=== PATIENT | male | born 1950 | race Caucasian/White ===

== ENCOUNTER 2019-12-20 08:29 | Inpatient (IN) | payer MEDICARE, BC ==
[~2019-12-20] VITALS: Ht 180.3 cm; Wt 74.8 kg
[2019-12-20] MEDS ORDERED: LIPITOR20 MG PO (10:16)
[2019-12-20] MEDS ORDERED: DONEPEZIL HCL10 MG PO (10:16)
[2019-12-20] MEDS ORDERED: CELEXA10 MG PO (10:16)
[2019-12-20] MEDS ORDERED: CIMETIDINE200 MG PO (10:17)
[2019-12-20] MEDS ORDERED: KLONOPIN1 MG PO (10:17)
[2019-12-20] MEDS ORDERED: METAMUCIL CAPSULE PO (10:24)
[2019-12-20] MEDS ORDERED: MINIPRESS1 MG PO (10:25)
[2019-12-20] MEDS ORDERED: EXELON1 PATCH .1 TRANSDERM (10:26)
[2019-12-20] MEDS ORDERED: TEGRETOL200 MG PO (10:27)
[2019-12-20] MEDS ORDERED: ZYPREXA2.5 MG PO (10:28)
[2019-12-20 10:49] LABS: BASOPHILS 0.3 % (0-2); EOSINOPHILS 1.1 % (0-7); HEMATOCRIT 35.1 % (42.0-54.0); HEMOGLOBIN 11.9 g/dL (13.5-17.5); IMMATURE GRANULOCYTES 0.2 % (0-5); LYMPHOCYTES 11.3 % (15-50); MCH 31.6 pg (26.0-34.0); MCHC 33.9 g/dL (31.0-37.0); MCV 93.1 fL (80.0-100.0); MEAN PLATELET VOLUME 9.6 fL (7.4-10.4); MONOCYTES 11.5 % (2-11); NEUTROPHILS 75.6 % (40-80); PLATELET COUNT 236 10x3/uL (130-400); RBC 3.77 10x6/uL (4.20-6.10); RDW 13.5 % (11.5-14.5); WBC 11.9 10x3/uL (4.8-10.8)
[2019-12-20 11:27] LABS: ALBUMIN 3.6 g/dL (3.4-5.0); ANION GAP 16.4 mmol/L (8-16); BILIRUBIN - TOTAL 0.61 mg/dL (0.2-1.3); CALCIUM 8.5 mg/dL (8.5-10.1); CARBON DIOXIDE 23.3 mmol/L (21.0-32.0); CHOL - HDL RATIO 2.6 ratio (2.3-4.9); CREATININE - SERUM 7.3 mg/dL (0.6-1.3); LDL-HDL RATIO 1.3 ratio (1.5-3.5); POTASSIUM - SERUM 4.7 mmol/L (3.5-5.1); PROTEIN - SERUM 6.8 g/dL (6.4-8.2); THYROID STIMULATING HORMONE 2.02 uIU/mL (0.36-3.74)
--- NOTE | 2019-12-20 12:00 | NUR ---
NEW ADMIT TO DOCTOR MOSCOSO ON DETENTION FROM [facility] FOR AGGRESSION. PATIENT WAS COMBATIVE WITH STAFF AT [facility]. UPON ARRIVAL TO DETENTION, PATIENT WAS SEDATED FROM PRN'S GIVEN AT [facility]. CONSENTS TO TREAT RECEIVED FROM AND LISHA ROLLE. DNR CODE STATUS RECEIVED FROM LISHA MICHAELS. CODE WORD OF 4638 GIVEN TO . UNIT INFORMATION GIVEN TO .
--- NOTE | 2019-12-20 17:30 | NUR ---
PATIENT STILL SEDATED FROM PRN'S GIVEN AT [facility]. UNABLE TO COMPLETE ADMISSION ASSESSMENT AT THIS TIME.
[2019-12-20 20:47] VITALS: BP 138/90
--- NOTE | 2019-12-20 22:34 | NUR ---
B.) PT IS ALERT AND ORIENTED TO SELF ONLY. HE IS UNABLE TO AMBULATE AT THIS TIME WITHOUT A WHEELCHAIR. HE IS HAVING VISUAL HALLUCINATIONS. HE IS UNABLE TO FOLLOW SIMPLE COMANDS AT THIS TIME. HE IS CALM AT THIS TIME I.) PROVIDED PM MEDICATIONS AND REDIRECT OFTEN. R.) COMPLIANT WITH ALL MEDICATIONS. DIFFICULT TO REDIRECT. P.) WILL CONTINUE TO MONITOR.
[2019-12-21 01:57] VITALS: BP 138/90; BMI 23.0
[2019-12-21 05:10] LABS: RAPID PLASMA REAGIN Non Reactive (Non Reactive)
[2019-12-21 08:39] LABS: BASOPHILS 0.2 % (0-2); HEMATOCRIT 33.7 % (42.0-54.0); HEMOGLOBIN 11.5 g/dL (13.5-17.5); IMMATURE GRANULOCYTES 0.2 % (0-5); LYMPHOCYTES 11.1 % (15-50); MCH 31.3 pg (26.0-34.0); MCHC 34.1 g/dL (31.0-37.0); MCV 91.6 fL (80.0-100.0); MEAN PLATELET VOLUME 9.5 fL (7.4-10.4); NEUTROPHILS 75.5 % (40-80); PLATELET COUNT 202 10x3/uL (130-400); RBC 3.68 10x6/uL (4.20-6.10); RDW 13.4 % (11.5-14.5); WBC 10.1 10x3/uL (4.8-10.8)
[2019-12-21 08:52] LABS: ALBUMIN 3.3 g/dL (3.4-5.0); ANION GAP 18.1 mmol/L (8-16); BILIRUBIN - TOTAL 0.41 mg/dL (0.2-1.3); CALCIUM 7.9 mg/dL (8.5-10.1); CARBON DIOXIDE 21.7 mmol/L (21.0-32.0); POTASSIUM - SERUM 4.8 mmol/L (3.5-5.1)
[2019-12-21 09:06] LABS: CREATININE - SERUM 10.5 mg/dL (0.6-1.3)
[2019-12-21 09:51] VITALS: BP 151/95
--- NOTE | 2019-12-21 10:20 | NUR ---
PT SITTING IN CHAIR WITH EYES CLOSED AT THIS TIME. PT HAS BEEN DROWSY THIS A.M. STAFF ASSSITED PT TO THE RESTROOM AND PT COULDNT NOT VOID AT THE TIME. PT IS ALERT TO SELF ONLY. CONFUSION NOTED. PT REQUIRES ASSISTANCE WITH ADLS. PT IS COMPLIANT WITH MEDS, VITALS AND ASSESSMENTS. CHAIR ALARM IN PLACE AND ACTIVE. WILL CONT PLAN OF CARE.
--- NOTE | 2019-12-21 10:30 | NUR ---
LAB CALLED A CRITICAL LAB OF BUN: 108 MG/DL. DR. JAIMES NOTIFIED AND NEW ORDER. CONSULT RENAL DOCTOR AND NEW ORDER: N/S 100 ML/HR IV. WILL PUT IN NEW ORDERS.
--- NOTE | 2019-12-21 10:37 | NUR ---
JEREMIAH CALLED WITH RESULTS FROM [facility] AT FACILITY ON WEDNESDAY UPON READMIT. NURSE STATED BRUISES WERE NOTED SO OBTAINED X-RAYS AND LABS. SHE CALLED FOR THE UPDATE RESULTS OF CRITICAL BUN AND NO INJURY NOTED FROM X-RAY. PER JEREMIAH WILL FAX RESULTS TO THIS UNIT.
--- NOTE | 2019-12-21 10:55 | NUR ---
UNABLE TO GET INITIAL URINALYSIS DUE TO PT BEING TOO COMBATIVE. WILL CONTINUE TO ATTEMPT TO GET ONE TODAY.
--- NOTE | 2019-12-21 11:00 | NUR ---
20 G IV PLACED IN LEFT FOREARM. WILL ADMINISTER FLUIDS WHEN FLUIDS ARE AVALIABLE. PHARMACY AWARE.
[2019-12-21 14:06] VITALS: Ht 180.3 cm; Wt 74.8 kg
--- NOTE | 2019-12-21 15:32 | PSY ---
PATIENT NAME:AMAN MICHAELS MEDICAL RECORD: [id number] : 48 LOCATION:[id number] ADMISSION DATE: 12/20/19 ACCOUNT: [id number] PSYCHIATRIC EVALUATION DATE OF EVALUATION: 12/20/19 IDENTIFYING DATA: The patient is 69 years old and he is referred to us by a local penitentiary. CHIEF COMPLAINT: Aggression. HISTORY OF PRESENT ILLNESS: The patient has a history of dementia and is new to the penitentiary that referred him. He has only been there 1 day, but he has had multiple aggressive behaviors there and they feel he is unmanageable. Of significance is the fact that the patient comes to this particular penitentiary from a behavioral unit in [place] where he has been an inpatient for 30 days. The patient was given Ativan last night secondary to the aggressive behavior. He is sleepy, arousable, but not providing much in the way of useful information. He cannot answer questions, it is clear he is confused. PAST MEDICAL HISTORY: Significant for acid reflux and hypertension. PAST PSYCHIATRIC HISTORY: Significant for an established diagnosis of dementia with behavioral problems that necessitated an inpatient stay in a behavioral unit for the past 30 days. FAMILY HISTORY: Unknown. SOCIAL HISTORY: The patient is and does have adult children who are involved with his care. He is not able to provide useful information regarding his social and occupational functioning at this time. ALLERGIES: No known drug allergies. CURRENT MEDICATIONS: Include Aricept, Lipitor, Celexa, Klonopin, Minipress, Exelon, Tegretol, and Zyprexa. MENTAL STATUS EXAMINATION: The patient is drowsy, but arousable. He is only oriented to person. He cannot really follow questions about memory, concentration, or abstraction, but they are deemed by inference to be significantly impaired. He denies that he would want to harm himself or others or that he is having psychotic symptoms. ASSESSMENT: AXIS I: Major neurocognitive disorder of the Alzheimer's type with behavioral disturbances. AXIS II: None. AXIS III: Hyperlipidemia, gastroesophageal reflux disease, hypertension. AXIS IV: Moderate. AXIS V: Global assessment of functioning is 30. PLAN: At this time, the patient is admitted to the hospital secondary to aggressive behavior associated with a dementing illness. He will be monitored for clinical changes associated with mood stabilizing and memory enhancing medications. I would like to obtain records from the hospital in [place] to see what medicines or combinations of medicines they have tried. Obviously, this is likely to be above average case with regard to difficulty given the history and the goal will be to improve his behavior such that he can be placed in a minimally supervised environment. The patient has no known history of sexual abuse or trauma. TRANSINT:[id number] Voice Confirmation ID: [id number] DOCUMENT ID: [id number] KATALINA MOSCOSO MD at 1532 CC: [id number] DICTATION DATE: 12/20/19 1551 AUTO CRANE DRIVER: 12/20/192025 ADM IN [facility] [address] [place] [address]
--- NOTE | 2019-12-21 15:40 | NUR ---
NURSE SPOKE WITH PTS AT THIS TIME. SHE WANTED TO KNOW IF WE WERE DOING MEDS ADJUSTMENTS OR IF WE HAD TO WAIT FOR THE DRUGS TO LEAVE HIS SYSTEM. NURSE DID EXPLAIN THAT WE DO MEDICATIONS ADJUSTMENTS AND WITH THAT IT WOULD TAKE TIME FOR THE BASELINE TO BE PRESENTED SO WE WOULD HAVE TO WAIT FOR THE MEDS TO LEAVE HIS SYSTEM. NURSE EXPLAINED WE DID GET AN FEMUR X-RAY FROM [facility] [place]. WE OBTAINED LABS AND X-RAY. RENAL DOCTOR WAS CONSULTED AND MEDICAL DOCTOR ORDERED AN N/S @ 100 MLS/HR FOR ELEVATED BUN AND CREAT. SHE VERBALZED UNDERSTANDING. THAT SHE WOULD NOT CALL OR SEE HIM FOR A FEW DAYS CAUSE AT THE LAST PLACE IT WOULD UPSET HIM VERY MUCH. NURSE VERBALIZED UNDERSTANDING.
[2019-12-21 20:23] VITALS: BP 137/85
--- NOTE | 2019-12-22 01:01 | NUR ---
B) Patient is alert and oriented to self, confused and talking to himself at times, I) Administered scheduled medications as ordered, resited IV to left arm after he pulled the previous IV out R) Medication compliant, monitored for safety P) Continue plan of care.
--- NOTE | 2019-12-22 07:54 | NUR ---
NURSES WENT INTO PTS ROOM TO ASSIST WITH GET UP FOR BREAKFAST. STOPPED PTS IV AND ASSESSED SITE. INFILTRATION NOTED TO IV SITE. OTHER NURSE ASSISTED WITH IV REMOVAL. PT DID NOT TOLERATED REMOVAL WELL. CATH TIP INTACT AND WHOLE. NO BLEEDING NOTED. WILL CONSULT MD ON RESITE IV.
[2019-12-22] MEDS ORDERED: Senokot TAB PO (09:35)
--- NOTE | 2019-12-22 09:52 | PN ---
PATIENT:AMAN MICHAELS MEDICAL RECORD: [id number] LOCATION:[facility] ADMISSION DATE: 12/20/19 PROGRESS NOTE DATE OF SERVICE: 12/21/2019 SUBJECTIVE: The patient's case was discussed with staff. He has no new complaint. OBJECTIVE: The patient is extremely confused. He was somewhat sedated yesterday, but did answer basic questions in a yes or no manner with maybe some occasional additional expression, but he today is speaking more, but it is very disorganized. It appears fairly certain or clear that he has an advanced dementia, but I would like to see some of the medications that he was given or taking prior to coming here have an opportunity to clear. He also has some abnormal lab values that need to be addressed and that may improve his cognition. ASSESSMENT: Dementia. PLAN: At this point, supportive and educational interventions were made and supportive care will be provided and he will be observed on current medications. TRANSINT:[id number] Voice Confirmation ID: [id number] DOCUMENT ID: [id number] KATALINA MOSCOSO MD at 0952 CC: [id number] DICTATION DATE: 12/21/19 1638 RAIL ENGINEER: 12/21/19 2329 ADM IN [facility] [address] [place] [address]
--- NOTE | 2019-12-22 10:27 | NUR ---
PT SITTING IN CHAIR WITH EYES CLOSED. RESP EVEN AND NONLABORED. PT IS CONFUSED AND ALERT TO SELF ONLY. PT IS CALM AND SLEEPING. NO COMBATIVE BEHAVIOR NOTED. PT IS COMPLIANT WITH MEDS, VITALS AND ASSESSMENTS. PT REQUIRES MAX ASSISTANCE. PT DOES NOT IV AT THIS TIME. PT IS TRANSFERRING TO ICU WHEN BED COMES AVALIABLE. CHAIR ALARM IN PLACE AND ACTIVE. WILL CONT PLAN OF CARE.
[2019-12-22 11:01] VITALS: BP 143/87
--- NOTE | 2019-12-22 12:03 | NUR ---
SW SPOKE WITH PT'S LISHA TO DISCUSS PT LEAVING THE FLOOR DUE TO BECOMING MORE MEDICAL. SW GAVE ICU NUMBER AND ROOM NUMBER. EDUCATED ON ONE VISITOR PER DAY. LISHA VOICED UNDERSTANDING OF DISCUSSION.
--- NOTE | 2019-12-22 12:25 | NUR ---
REPORT GIVEN IN ICU. PAPERWORK TAKEN. COPY OF ADMISSION ORDERS FAXED. PT BELONGINGS BAGGED AND TAKEN TO ICU. CURRENT LABS PRINTED FOR ICU. PT TOLERATED TRANFER WELL. NOTIFIED OF TRANSFER AND REASONS LEADING TO TRANFSER. Roosevelt POND, FLOOR MECHANIC GAVE ICU ROOM AND NUMBER.
== END 2019-12-22 12:15 | disposition short-term general hospital (02) | DRG 57 ==
LOC: D.PSYCH 08:29
PROVIDERS: Family Medicine; ADMIT Psychiatry & Neurology Psychiatry; ATTEND Psychiatry & Neurology Psychiatry
DX: G30.9 Alzheimer's disease, unspecified (principal); F02.81 Dementia in other diseases classified elsewhere, unspecified severity, with behavioral disturbance; N17.9 Acute kidney failure, unspecified; E78.00 Pure hypercholesterolemia, unspecified; J30.1 Allergic rhinitis due to pollen; K21.9 Gastro-esophageal reflux disease without esophagitis; K59.01 Slow transit constipation

== ENCOUNTER 2019-12-22 13:00 | Inpatient (IN) | payer MEDICARE, BC ==
[~2019-12-22] VITALS: Ht 180.3 cm; Wt 64.1 kg
[2019-12-22] VITALS (11 sets, daily range): BP systolic 119–154; BP diastolic 82–105; Ht 180.3 cm; Wt 64.1 kg
[~2019-12-22 13:00] MED LIST: CELEXA10 MG PO; CIMETIDINE200 MG PO; DONEPEZIL HCL10 MG PO; EXELON1 PATCH .1 TRANSDERM; KLONOPIN1 MG PO; LIPITOR20 MG PO; METAMUCIL CAPSULE PO; MINIPRESS1 MG PO; Senokot TAB PO; TEGRETOL200 MG PO; ZYPREXA2.5 MG PO
--- NOTE | 2019-12-22 13:00 | NUR ---
ADMIT TO ICU. KELLY ORDERED. ATTEMPT 3 ATTEMPTS
[2019-12-22 14:07] LABS: INR 1.13 (0.85-1.17); PROTIME 14.4 SECONDS (11.6-15.0)
[2019-12-22 14:08] LABS: HEMATOCRIT 33.7 % (42.0-54.0); HEMOGLOBIN 11.6 g/dL (13.5-17.5); LYMPHOCYTES 9.6 % (15-50); MCH 31.5 pg (26.0-34.0); MCHC 34.4 g/dL (31.0-37.0); MCV 91.6 fL (80.0-100.0); MEAN PLATELET VOLUME 9.8 fL (7.4-10.4); NEUTROPHILS 79.5 % (40-80); PLATELET COUNT 218 10x3/uL (130-400); RBC 3.68 10x6/uL (4.20-6.10); RDW 13.7 % (11.5-14.5); WBC 10.6 10x3/uL (4.8-10.8)
--- NOTE | 2019-12-22 14:25 | NUR ---
KELLY PLACED 14 GEORGIAN KUDAE PLACED. 3100 CC TEA COLORED URINE NOTED.
[2019-12-22 14:29] LABS: ALBUMIN 3.1 g/dL (3.4-5.0); ALKALINE PHOSPHATASE 73 U/L (30-120); ALT (SGPT) 34 U/L (10-68); BILIRUBIN - TOTAL 0.48 mg/dL (0.2-1.3); CALCIUM 7.9 mg/dL (8.5-10.1); CARBON DIOXIDE 20.8 mmol/L (21.0-32.0); CHLORIDE - SERUM 98 mmol/L (98-107); CKMB 6.2 U/L (0.0-3.6); CREATINE KINASE 532 UL (21-232); CREATININE - SERUM 12.6 mg/dL (0.6-1.3); GLUCOSE 92 mg/dL (74-106); POTASSIUM - SERUM 4.4 mmol/L (3.5-5.1); PROTEIN - SERUM 6.3 g/dL (6.4-8.2); SODIUM 133 mmol/L (136-145); eGFR NON AFRICAN AMERICAN 4 mL/min (90-120)
[2019-12-22 14:31] LABS: BILIRUBIN NEGATIVE (NEGATIVE); GLUCOSE NEGATIVE (NEGATIVE); KETONE NEGATIVE (NEGATIVE); NITRITE NEGATIVE (NEGATIVE); UROBILINOGEN NORMAL (NORMAL)
[2019-12-22 14:38] LABS: BACTERIA FEW /hpf (NEGATIVE); EPITHELIAL CELLS NSEEN /hpf (0-5); RED CELLS - URINE >50 /hpf (0-5); WHITE CELLS - URINE 0-5 /hpf (NEGATIVE)
[2019-12-22 14:44] LABS: CALC OSMOLALITY 308 mosm/kg (275-300); UREA NITROGEN 132 mg/dL (7-18)
--- NOTE | 2019-12-22 18:55 | NUR ---
SLEEPIN NO DISTRESS NOTED.
--- NOTE | 2019-12-22 19:00 | NUR ---
ASSESSMENT COMPLETED. WHEN NURSE WAS ASSESSING LUNG SOUNDS, PATIENT HIT THIS NURSE 3 TIMES IN THE ARM AND YELLED "FUCK YOU, GET AWAY." UNABLE TO REORIENT.
--- NOTE | 2019-12-22 21:00 | NUR ---
EYES CLOSED, EASILY WAKES WITH NAME. CONFUSION CONTINUES
[2019-12-22 21:08] LABS: ANION GAP 10.7 mmol/L (8-16); CALCIUM 8.5 mg/dL (8.5-10.1); CARBON DIOXIDE 25.9 mmol/L (21.0-32.0); CREATININE - SERUM 4.8 mg/dL (0.6-1.3); POTASSIUM - SERUM 4.6 mmol/L (3.5-5.1)
--- NOTE | 2019-12-22 23:00 | NUR ---
RE-ASSESSMENT COMPLETED. NO CHANGES SINCE LAST ASSESSMENT
[2019-12-23] VITALS (23 sets, daily range): BP systolic 127–177; BP diastolic 64–101
--- NOTE | 2019-12-23 01:00 | NUR ---
AWAKE. TALKING. PATIENT IS TALKING ABOUT SEVERAL TIMES AT ONCE. CONFUSION NOTED.
--- NOTE | 2019-12-23 02:45 | NUR ---
MED BM NOTED. CHG BATH WITH COMPLETE LINEN CHANGE DONE. PATIENT SPITTING ACROSS THE ROOM AT THE WINDOW
--- NOTE | 2019-12-23 03:00 | NUR ---
RE-ASSESSMENT COMPLETED. NO CHANGES SINCE LAST ASSESSMENT
--- NOTE | 2019-12-23 05:07 | NUR ---
AWAKE. TALKING, LOOKING UP AT THE CEILING. NOT ABLE TO UNDERSTAND WHAT IS BEING SAID.
[2019-12-23 06:39] LABS: BASOPHILS 0.2 % (0-2); EOSINOPHILS 1.5 % (0-7); HEMATOCRIT 35.7 % (42.0-54.0); HEMOGLOBIN 12.2 g/dL (13.5-17.5); IMMATURE GRANULOCYTES 0.2 % (0-5); LYMPHOCYTES 10.2 % (15-50); MCH 31.7 pg (26.0-34.0); MCHC 34.2 g/dL (31.0-37.0); MCV 92.7 fL (80.0-100.0); MEAN PLATELET VOLUME 9.8 fL (7.4-10.4); MONOCYTES 8.6 % (2-11); NEUTROPHILS 79.3 % (40-80); PLATELET COUNT 248 10x3/uL (130-400); RBC 3.85 10x6/uL (4.20-6.10); RDW 13.5 % (11.5-14.5)
[2019-12-23 07:02] LABS: ANION GAP 12.4 mmol/L (8-16); CALCIUM 8.5 mg/dL (8.5-10.1); CARBON DIOXIDE 25.1 mmol/L (21.0-32.0); MAGNESIUM - SERUM 2.5 mg/dL (1.8-2.4); PHOSPHOROUS 2.9 mg/dL (2.5-4.9); POTASSIUM - SERUM 4.5 mmol/L (3.5-5.1)
[2019-12-23 07:11] LABS: CREATININE - SERUM 1.5 mg/dL (0.6-1.3)
--- NOTE | 2019-12-23 10:24 | NUR ---
0700 REPORT RECIEVED AND CARE ASSUMED OF PATIENT SEE SHIFT REPORT FOR ASSESMENT FINDINGS..PT IS SLEEPING AT THIS TIME.. SOFT WRIST RESTRAINTS ON 0800 PT IS MORE AWAKE HE IS EASILY AGITATED WITH VERBAL AND ESPICIALLY TACTILE STIMULI 0900 DR JAIMES IN TO SEE PATIENT.. UPDATE IS GIVEN.. 1005 CALLED AND UPDATE IS GIVEN..
--- NOTE | 2019-12-23 13:50 | NUR ---
1130 LUNCH SERVED AND PT ASSISTED WITH MEAL 50% EATEN.. CONTIONUES WITH SOFT WRIST RESTRAINTS ON.. 1230 APPEARS SLEEPING AT THIS TIME.. 1325 DR PIERRE IN TO SEE PATIENT.. 1345 DR RUGGIERO IN TO SEE PATIENT..
--- NOTE | 2019-12-23 17:38 | NUR ---
1500 PT IS AWAKE AND TALKING RANDOMLY CONTINUES IN RESTRAINTS.. 1600 PARTIAL BATH AND LINEN CHANGE DONE PT INCONTINENT OF STOOL 1700 DINNER SERVED AND ATTEMPT TO GET PATIENT TO EAT .. HE REFUSES ..
[2019-12-23 20:54] LABS: CALCIUM 8.3 mg/dL (8.5-10.1); CARBON DIOXIDE 28.5 mmol/L (21.0-32.0); CHLORIDE - SERUM 108 mmol/L (98-107); GLUCOSE 90 mg/dL (74-106); POTASSIUM - SERUM 4.1 mmol/L (3.5-5.1); SODIUM 145 mmol/L (136-145); eGFR NON AFRICAN AMERICAN 89 mL/min (90-120)
[2019-12-23 21:01] LABS: CALC OSMOLALITY 291 mosm/kg (275-300); CREATININE - SERUM 0.9 mg/dL (0.6-1.3); UREA NITROGEN 22 mg/dL (7-18)
--- NOTE | 2019-12-23 22:21 | NUR ---
1900-ASSESSMENT COMPLETED. BREATHING ROOM AIR. PATIENT STATED "YOU WANT TO PUT YOUR FOOT UP THERE, MINE HAS ALREADY BEEN." VERY CONFUSED. CONTINUES TALKING, NOT MAKING SENSE. 2099- NO CHANGES, VSS
[2019-12-24] VITALS (9 sets, daily range): BP systolic 128–160; BP diastolic 68–103
[2019-12-24 04:39] LABS: BASOPHILS 0.2 % (0-2); EOSINOPHILS 2.2 % (0-7); HEMATOCRIT 35.7 % (42.0-54.0); HEMOGLOBIN 11.8 g/dL (13.5-17.5); IMMATURE GRANULOCYTES 0.2 % (0-5); LYMPHOCYTES 15.7 % (15-50); MCH 31.2 pg (26.0-34.0); MCHC 33.1 g/dL (31.0-37.0); MCV 94.4 fL (80.0-100.0); MEAN PLATELET VOLUME 9.5 fL (7.4-10.4); MONOCYTES 9.4 % (2-11); NEUTROPHILS 72.3 % (40-80); PLATELET COUNT 275 10x3/uL (130-400); RBC 3.78 10x6/uL (4.20-6.10); RDW 13.2 % (11.5-14.5)
--- NOTE | 2019-12-24 04:47 | NUR ---
[id number] COMPLETED. NO CHANGES. REPOSITIONED. 0100- REPOSITIONED. VSS. 0300- REASSESSMENT COMPLETED. NO CHANGES. PATIENT CONT TO TALK TO SELF. PATIENT IS TALKING ABOUT AN INSURANCE CLAIM AND HIS TAXES.
[2019-12-24 04:51] LABS: CALC OSMOLALITY 282 mosm/kg (275-300); CALCIUM 8.4 mg/dL (8.5-10.1); CARBON DIOXIDE 27.6 mmol/L (21.0-32.0); CHLORIDE - SERUM 108 mmol/L (98-107); CREATININE - SERUM 0.8 mg/dL (0.6-1.3); GLUCOSE 88 mg/dL (74-106); SODIUM 141 mmol/L (136-145); UREA NITROGEN 20 mg/dL (7-18); eGFR NON AFRICAN AMERICAN > 90 mL/min (90-120)
--- NOTE | 2019-12-24 05:30 | NUR ---
VSS. NO CHANGES.
--- NOTE | 2019-12-24 09:54 | NUR ---
PUT IN ORDER FOR PSYCH CONSULT PER , PRINTED OUT ORDER AND FAXED TO RETIREMENT.
[2019-12-24] MEDS ORDERED: ATIVAN IV (10:24)
--- NOTE | 2019-12-24 12:52 | NUR ---
0700 REPORT REIEVED AND CARE ASSUMED OF PATIENT.. SEE SHIFT REPORT FOR ASSESMENT FINDINGS.. PT REMAINS CONFUSED AND COMBATIVE.. HE IS TALKING TO SOMEONE WHO IS NOT THERE,, 0800 TRYING TO GET OOB.. REPOSITIONED AND BREAKFAST IS SERVED.. PT IS UNABLE TO FEED SELF AND WILL ONLY TAKE 2 BITES WITH FEEDING ASSISTANCE.. THEN REFUSES ANY MORE,, 0900 TRYING TO GET OOB.. SPOKE WITH DR JAIMES.. ORDER FOR SENIOR PSYCH EVAL AND TRANSFER TO THE UNIT.. 45 SITTER HERE FROM [facility] TO HELP CONTAIN PATIENT SO THAT MIGUEL BED IS NOT NECESSARY CONTINUES IN SOFT WRIST RESTRAINTS
--- NOTE | 2019-12-24 16:00 | NUR ---
1000 CALLED AND UPDATE IS GIVEN.. 1130 PT HAS TWISTED HIMSEFL IN THE BED ... REPOSTIONED .. ATIVAM GIVEN AND COMPLETE CHG WITH LINEN CHANGES DONE.. 1200 PT IS MORE RESTFUL.. 1230 SLEEPING.. REFUSES LUNCH 1430 PT IS AWAKE AND IS VERY RESTESS AGAIN .. PULLING AT TUBES AND WIRES.. 1500 TALKING TO PEOPLE WHO ARE NOT HERE AND PULLING AT THE THINGS.. 1600 ATIVAN GIVEN IV TO CALM PATIENT..
--- NOTE | 2019-12-24 18:03 | NUR ---
1700 REPORT CALLED TO [facility] AND PT TRANSPORTED VIA BED AFTER PIV REMOVED PER [facility] NURSE.. PT REMAINS COMBATIVE AND PULLING AT TUBES AND WIRES..
== END 2019-12-24 18:05 | disposition short-term general hospital (02) | DRG 683 ==
LOC: D.ICU 13:00
PROVIDERS: Internal Medicine Nephrology; ADMIT Family Medicine; ATTEND Family Medicine
DX: N17.9 Acute kidney failure, unspecified (principal); F02.81 Dementia in other diseases classified elsewhere, unspecified severity, with behavioral disturbance; N13.8 Other obstructive and reflux uropathy; F41.8 Other specified anxiety disorders; J30.9 Allergic rhinitis, unspecified; K21.9 Gastro-esophageal reflux disease without esophagitis; K59.00 Constipation, unspecified; E78.5 Hyperlipidemia, unspecified; M19.90 Unspecified osteoarthritis, unspecified site; G30.9 Alzheimer's disease, unspecified; N40.1 Benign prostatic hyperplasia with lower urinary tract symptoms

== ENCOUNTER 2019-12-24 17:58 | Inpatient (IN) | payer MEDICARE, BC ==
[~2019-12-24] VITALS: Ht 180.3 cm; Wt 74.8 kg
[~2019-12-24 17:58] MED LIST changes: +ATIVAN IV
--- NOTE | 2019-12-24 18:00 | NUR ---
PT ADMITTED FROM ICU FOR AGGRESSION. PT VERY AGGRESIVE UPON ARRIVAL. DR. MOSCOSO NOTIFIED NEW ORDERS NOTED. GEODON 20MG IM NOW 1800. GIVEN PER EMILY RN/ICU NURSE. GEODON 2OMG IM Q 2H PRN DO NOT EXCEED 60 MG IN 24HRS. HALDOL 5MG IM Q 2H PRN , HALDOL 5MG PO Q 2H PRN, ATIVAN 2MG IM Q 2H PRN, ATIVAN 2MG PO Q 2H PRN. PT IS DNR. PT IN BED WITH 1:1 SITTER AT BEDSIDE. WILL CPOC.
--- NOTE | 2019-12-24 18:36 | NUR ---
LATE ENTRY 1700 SOFT WRIST RESTRAINTS REMOVED PRIOR TO TRANSPORT..
--- NOTE | 2019-12-24 22:27 | NUR ---
RECEIVED IN BEDROOM. RESTING IN BED WITH EYES CLOSED. ONE ON ONE AT BEDSIDE FOR SAFETY. NO SIGNS OF AGGRESSION. CONTINUE TO MONITOR FOR SAFETY. MOVING ABOUT IN BED AT THIS TIME. CONTINUE PLAN OF CARE.
[2019-12-25 00:21] VITALS: BP 157/109; BMI 23.0
[2019-12-25 06:54] LABS: BASOPHILS 0.2 % (0-2); HEMATOCRIT 38.6 % (42.0-54.0); HEMOGLOBIN 12.7 g/dL (13.5-17.5); IMMATURE GRANULOCYTES 0.2 % (0-5); LYMPHOCYTES 10.3 % (15-50); MCH 31.1 pg (26.0-34.0); MCHC 32.9 g/dL (31.0-37.0); MCV 94.6 fL (80.0-100.0); MEAN PLATELET VOLUME 9.5 fL (7.4-10.4); MONOCYTES 5.7 % (2-11); NEUTROPHILS 82.6 % (40-80); RBC 4.08 10x6/uL (4.20-6.10)
[2019-12-25 06:55] LABS: PLATELET COUNT 343 10x3/uL (130-400); WBC 13.9 10x3/uL (4.8-10.8)
--- NOTE | 2019-12-25 07:26 | NUR ---
PT IS VERY COMBATIVE WITH STAFF. PT UNABLE TO REDIRECT AT THIS TIME. HALDOL 5MG IM GIVEN PER ORDER. 1:1 SITTER WITH PT FOR SAFETY. WILL CPOC.
[2019-12-25 07:38] LABS: ALBUMIN 3.4 g/dL (3.4-5.0); ALKALINE PHOSPHATASE 78 U/L (30-120); ALT (SGPT) 32 U/L (10-68); BILIRUBIN - TOTAL 0.71 mg/dL (0.2-1.3); CALC OSMOLALITY 291 mosm/kg (275-300); CALCIUM 8.9 mg/dL (8.5-10.1); CARBON DIOXIDE 31.1 mmol/L (21.0-32.0); CHLORIDE - SERUM 109 mmol/L (98-107); CHOLESTEROL, TOTAL 179 mg/dL (0-200); CREATININE - SERUM 0.8 mg/dL (0.6-1.3); GLUCOSE 102 mg/dL (74-106); HDL CHOLESTEROL 45 mg/dL (32-96); LDL CHOLESTEROL 110 mg/dL (0-100); LDL-HDL RATIO 2.4 ratio (1.5-3.5); POTASSIUM - SERUM 4.4 mmol/L (3.5-5.1); SODIUM 145 mmol/L (136-145); THYROID STIMULATING HORMONE 2.17 uIU/mL (0.36-3.74); TRIGLYCERIDE 123 mg/dL (30-200); UREA NITROGEN 20 mg/dL (7-18); eGFR NON AFRICAN AMERICAN > 90 mL/min (90-120)
[2019-12-25 08:37] VITALS: BP 155/93
--- NOTE | 2019-12-25 10:30 | NUR ---
PT CONTINUES TO BE COMBATIVE WITH STAFF. PT IS ATTEMPTING TO SPIT ON STAFF AND OTHERS IN DAYROOM. 1:1 SITTER WITH PT FOR SAFETY. PRN ATIVAN 2MG IM GIVEN PER ORDER THIS TIME. WILL CPOC.
[2019-12-25 20:06] VITALS: BP 132/88
--- NOTE | 2019-12-25 21:37 | NUR ---
RECEIVED IN DAYROOM. SITTING IN A CHAIR WITH PEERS AT HIS SIDE. VERY CONFUSED. CHEWING ON HIS FINGERS UNTIL THEY WERE OPEN AND BLEEDING. AGITATION WITH CARE. DRESSING APPLIED TO RIGHT HAND. PRN GEODON 20 MG IM GIVEN FOR AGGRESSION. ONE ON ONE CARE PROVIDED FOR SAFETY. MHT AT BEDSIDE. CONTINUE PLAN OF CARE.
--- NOTE | 2019-12-26 00:20 | NUR ---
RESTLESS IN BED. ATTEMPTS TO CLIMB OUT OF BED. AGGRESSION WITH CARE. PRN HALDOL 5 MG IM GIVEN FOR AGGRESSION. CONTINUE ONE ON ONE CARE FOR SAFETY.
[2019-12-26 06:10] LABS: RAPID PLASMA REAGIN Non Reactive (Non Reactive)
[2019-12-26 09:05] VITALS: BP 146/95
--- NOTE | 2019-12-26 10:00 | NUR ---
RECEIVED IN HALLWAY OUTSIDE OF NURSES STATION. CALM AND COOPERATIVE WITH CARE AND ASSESSMENT. NO AGGRESSIVE BEHAVIORS NOTED. REDIRECT AND REORIENT NEEDED. CONTINUE PLAN OF CARE.
[2019-12-26 13:01] VITALS: Ht 180.3 cm; Wt 74.8 kg
--- NOTE | 2019-12-26 13:20 | PSY ---
PATIENT NAME:AMAN MICHAELS MEDICAL RECORD: [id number] : 48 LOCATION:[facility]1 ADMISSION DATE: 12/24/19 ACCOUNT: [id number] PSYCHIATRIC EVALUATION DATE OF EVALUATION: 12/25/19 IDENTIFYING DATA: The patient is 69 years old and he was admitted to the hospital on a voluntary basis. CHIEF COMPLAINT: Aggression. HISTORY OF PRESENT ILLNESS: The patient was admitted to the hospital behavioral unit about a week ago because of aggressive behavior. He had been in a psychiatric hospital in [place] for a month prior to being sent to a local prison. He was at a local prison 1 day when he was aggressive there and was sent to this facility. After about 4 days here, he developed an acute ST elevation in his BUN and was sent to the medical floor for treatment. He has subsequently been treated and returned here. He has been extremely aggressive. He is arousable, but does not answer any questions in any meaningful way. His says he has a long history of dementia. PAST MEDICAL HISTORY: Significant for hypertension. PAST PSYCHIATRIC HISTORY: Significant for an established diagnosis of dementia. FAMILY HISTORY: Unknown. ALLERGIES: No known drug allergies. CURRENT MEDICATIONS: Please see the admissions MAR. SOCIAL HISTORY: The patient is . He does have adult children who are involved with his care. He has no known history of drug or alcohol abuse. MENTAL STATUS EXAMINATION: The patient is sedated, but arousable. He is only oriented to person. He is not able to follow simple commands. ASSESSMENT: AXIS I: Major neurocognitive disorder of the Alzheimer's type with behavioral disturbances. AXIS II: None. AXIS III: Hyperlipidemia, gastroesophageal reflux disease, hypertension. AXIS IV: Moderate. AXIS V: Global assessment of functioning is 20. PLAN: At this time, the patient's dementia is clearly advanced. His aggressive behaviors are significant. He is not taking any medications orally. He is not taking food or drink orally. His prognosis is exceedingly poor if he will not begin taking medications. It does appear that hospice or comfort care is going to be required. TRANSINT:[id number] Voice Confirmation ID: [id number] DOCUMENT ID: [id number] KATALINA MOSCOSO MD at 1320 CC: [id number] DICTATION DATE: 12/25/19 1604 SUPERINTENDENT PRESSURE: 12/25/19 2118 ADM IN [facility] [address] [place] [id number]
--- NOTE | 2019-12-26 17:00 | NUR ---
PATIENT'S KELLY NOT DRAINING URINE. URINE OUTPUT LAST NIGHT WAS ONLY 25 ML. ABDOMEN VERY DISTENDED. BLADDER SCAN DONE AND PATIENT HAD 999+ URINE. ATTEMPTED TO FLUSH. NURSE PRACTIONER AT BEDSIDE. ORDER RECEIVED TO CONSULT UROLOGY OR TRANSFER PATIENT TO DIFFERENT HOSPITAL IF WE DO NOT HAVE UROLOGY. TERMITE CONTROL SERVICE REPRESENTATIVE CALLED TO ASK IF WE HAD UROLOGY AND NOTIFY THAT NURSE PRACTIONER WANTED TO TRANSFER PATIENT. TRANSFER FORM SIGNED BY NURSE PRACTIONER. [facility] CALLED AND INFORMATION GIVEN TO THEM. ICU CAME DOWN AND REINSERTED CATHETER. INFORMED BY ICU THAT HE HAD PULLED IT OUT OF PLACE. CATHETER DRAINED OUT 2000 ML OF PLUM COLORED URINE. FURNACE ERECTOR NURSE PRACTIONER NOTIFIED. PATIENT TRANSFER CANCELLED. WILL CONTINUE TO MONITOR.
[2019-12-26 19:56] VITALS: BP 146/128
--- NOTE | 2019-12-26 22:04 | NUR ---
RECEIVED IN DAYROOM. SITTING IN A CHAIR WITH PEERS AT HIS SIDE. CALM AND COOPERATIVE WITH CARE AND ASSESSMENT AT THIS TIME. NOT VERBALIZING NEEDS. KELLY INTACT. RESTING IN BED WITH EYES CLOSED AT THIS TIME. CONTINUE PLAN OF CARE.
--- NOTE | 2019-12-27 02:13 | NUR ---
PATIENT RESTLESS. ATTEMPTS TO CLIMB OUT OF BED. PULLING AT FOLRY. AGGRESSION DURING REDIRECTION. PRN GEODON 20 MG IM GIVEN FOR AGGRESSION. CONTINUE TO MONITOR FOR SAFETY.
[2019-12-27 09:57] VITALS: BP 122/85
--- NOTE | 2019-12-27 12:27 | NUR ---
NURSE BLADDER SCAN PATIENT 86 ML SCANNED IN BLADDER. PT CATH INTACT AND DRAINING AT THIS TIME. WILL CONT TO MONITOR FOR RETENTION.
--- NOTE | 2019-12-27 13:20 | NUR ---
PT IS IN CHAIR RESTLESS AT THIS TIME. PT IS DRINKING AND EATING BETTER. PT IS CONFUSED AND DISORIENTED. REDIRECT AND REORIENT NEEDED. PT ATTEMPTS TO TUG ON KELLY CATHETER LINE. REDIRECT PTS BEHAVIOR IF NEEDED. PT IS ALERT TO SELF ONLY WITH LOW COGNITIVE UNDERSTANDING. PT IS COMPLIANT WITH CRUSHED MEDS, VITALS AND ASSESSMENTS. PT REQUIRES 2X ASSISTANCE WITH ADLS. NO ACUTE DISTRESS NOTED. NEW ORDER FOR SCHEDULE TYLENOL AND PRN TRAMADOL FOR IN PAIN ACTIONS. CHAIR ALARM IN PLACE AND ACTIVE. WILL CONT PLAN OF CARE.
--- NOTE | 2019-12-27 13:48 | NUR ---
Nutrition Follow-up: Poor PO intake. -BM. Noted hospice/palliative care being considered. Diet: Regular, Ensure TID PO intake: 4% avg x 6 meals Wt: 165# (12/25) Labs reviewed Meds noted: Pepcid, vitamin D -Encourage PO intake and honor food preferences. -Pt may benefit from appetite stimulant. -Monitor wt. -RD following.
--- NOTE | 2019-12-27 15:36 | PN ---
PATIENT:AMAN MICHAELS MEDICAL RECORD: [id number] LOCATION:[facility]112 ADMISSION DATE: 12/24/19 PROGRESS NOTE DATE OF SERVICE: 12/26/2019 SUBJECTIVE: The patient's case was discussed with staff. He has no new complaint. OBJECTIVE: The patient is very disorganized and not making any intelligible sense. He is intermittently agitated. ASSESSMENT: Dementia. PLAN: The patient is retaining urine in his bladder. There is a catheter in place, but it is not draining. Internal medicine is addressing this issue and at this point, it is my understanding that they are going to try to have him moved to a facility that does have urology available. We do not have a urologist at this time. From a psychiatric standpoint, the patient is not acutely dangerous. He does have behavior issues with personal care, but he is too critically ill right now to be disruptive in any way. Once his underlying medical issues have been addressed if he has any aggression, he can be managed with p.r.n. Hall, Lily, and Megha and if there is a problem, he can be returned here for ongoing management of his behavior issues. In summary, I believe that this patient's condition is grave and his prognosis is poor. He clearly has a very advanced dementia. He obviously has medical problems that are beyond the scope of my expertise and arrangements are being made to address that. In addition to this, the patient has a dementia that is so advanced he is not eating or drinking and I suspect hospice or palliative care is going to be indicated at some point soon. TRANSINT:[id number] Voice Confirmation ID: [id number] DOCUMENT ID: [id number] KATALINA MOSCOSO MD at 1536 CC: [id number] DICTATION DATE: 12/26/19 1542 SAMPLER OVENS: 12/27/19 0123 ADM IN [place] [facility] [id number] [place] [address]
[2019-12-27 20:00] VITALS: BP 128/78
--- NOTE | 2019-12-27 22:52 | NUR ---
PATIENT RECEIVED ATIVAN AND HALDOL IM PRN FOR EXTREME AGITATION. HITTING, BITING AND TWISTING STAFF'S HANDS, BITING HIS OWN FINGERS, PRN WAS EFFECTIVE. WILL MONITOR
[2019-12-28 10:31] VITALS: BP 134/84
[2019-12-28 10:34] LABS: BASOPHILS 0.1 % (0-2); EOSINOPHILS 0.3 % (0-7); HEMATOCRIT 40.8 % (42.0-54.0); HEMOGLOBIN 13.1 g/dL (13.5-17.5); IMMATURE GRANULOCYTES 0.3 % (0-5); LYMPHOCYTES 9.3 % (15-50); MCH 31.8 pg (26.0-34.0); MCHC 32.1 g/dL (31.0-37.0); MEAN PLATELET VOLUME 9.9 fL (7.4-10.4); MONOCYTES 6.3 % (2-11); NEUTROPHILS 83.7 % (40-80); RBC 4.12 10x6/uL (4.20-6.10); RDW 13.6 % (11.5-14.5); WBC 15.8 10x3/uL (4.8-10.8)
[2019-12-28 10:42] LABS: PLATELET COUNT 262 10x3/uL (130-400)
[2019-12-28 10:52] LABS: ALBUMIN 3.3 g/dL (3.4-5.0); ANION GAP 10.1 mmol/L (8-16); BILIRUBIN - TOTAL 0.41 mg/dL (0.2-1.3); CALCIUM 9.3 mg/dL (8.5-10.1); CARBON DIOXIDE 34.1 mmol/L (21.0-32.0); CREATININE - SERUM 1.1 mg/dL (0.6-1.3); POTASSIUM - SERUM 4.2 mmol/L (3.5-5.1); PROTEIN - SERUM 6.7 g/dL (6.4-8.2)
--- NOTE | 2019-12-28 11:28 | NUR ---
CRITICAL LAB CALLED ATIF 115. REPORTED CRITICAL TO Latoya CROWLEY APN. NEW ORDERS GIVEN. 1/2 NS IV AND LEVAQUIN 500 MG IV X 7 DOSES. WILL ATTEMPT TO SITE IV AND BEGIN FLUIDS AND ANTIBIOTICS SOON AVALIABLE. PT A.M. MEDICATIONS HELD DUE TO EXTREME DROWSINESS DUE TO PRN ON PREVIOUS SHIFT. NO BEHAVIORS NOTED THUS FAR THIS SHIFT. NO ACUTE DISTRESS NOTED. LABS OBTAINED. CHAIR ALARM IN PLACE AND ACTIVE. WILL CONT PLAN OF CARE.
--- NOTE | 2019-12-28 11:50 | NUR ---
NURSE SITED 20G IV IN LEFT FOREARM. IV PATENT FLUSH AND SECURED. PT TOLERATED WELL. LEVAQUIN 500 IV AND 1/2 NS @ 125 MG HUNG AND RUNNING. PT TOLERATING WELL. REDIRECT BEHAVIORS FOR PT TO AVOID PULLING AT IV LINE.
--- NOTE | 2019-12-28 12:17 | PN ---
PATIENT:AMAN MICHAELS MEDICAL RECORD: [id number] LOCATION:[facility] ADMISSION DATE: 12/24/19 PROGRESS NOTE DATE OF SERVICE: 12/27/2019 SUBJECTIVE: The patient's case was discussed with staff. He has no new complaint. OBJECTIVE: The patient is calmer today. Apparently, the catheter was not properly placed and after adjusting that he did drain his bladder. He is not aggressive today, although last night, he did require p.r.n. medication. ASSESSMENT: Dementia. PLAN: The patient is going to be placed on a scheduled dose of Ultram. There is some suspicion that his underlying agitation is associated with discomfort. TRANSINT:[id number] Voice Confirmation ID: [id number] DOCUMENT ID: [id number] KATALINA MOSCOSO MD at 1217 CC: [id number] DICTATION DATE: 12/27/19 1550 VALUER: 12/28/19 0045 ADM IN [place] [id number] [place] [id number]
[2019-12-28] MEDS ORDERED: VITAMIN D5000 UNI1 PO (16:50)
[2019-12-28] MEDS ORDERED: URISPAS100 MG PO (16:50)
[2019-12-28] MEDS ORDERED: GEODON20 MG PO (16:50)
[2019-12-28] MEDS ORDERED: PEPCID PO (16:50)
[2019-12-28] MEDS ORDERED: FLOMAX0.4 MG PO (16:50)
[2019-12-28] MEDS ORDERED: CARDURA1 MG PO (16:50)
[2019-12-28] MEDS ORDERED: ULTRAM50 MG PO (16:50)
[2019-12-28] MEDS ORDERED: Senokot TAB PO (16:50)
[2019-12-28] MEDS ORDERED: Megace ES [CHEMO] PO (16:50)
[2019-12-28] MEDS ORDERED: LEVOFLOXAC500 MG/100 IV (16:50)
--- NOTE | 2019-12-28 18:30 | NUR ---
IV IN LEFT HAND DISCONTINUED WITH CATHETER INTACT.
[2019-12-28 20:04] VITALS: BP 117/72
--- NOTE | 2019-12-28 20:07 | NUR ---
RECEIVED PATIENT IN DAYROOM, HE IS LYING IN GERICHAIR EYES CLOSED, NOT CLINCHING HIS FIST OR TRYING TO BITE WHICH IS NORMAL FOR HIM. HE WILL BE ADMITTED TO [facility] THIS EVENING. WILL MONITOR UNTIL DISCHARGE.
[2019-12-29 06:09] LABS: BASOPHILS 0.1 % (0-2); EOSINOPHILS 0.4 % (0-7); HEMATOCRIT 40.6 % (42.0-54.0); HEMOGLOBIN 12.7 g/dL (13.5-17.5); IMMATURE GRANULOCYTES 0.3 % (0-5); LYMPHOCYTES 9.5 % (15-50); MCH 31.2 pg (26.0-34.0); MCHC 31.3 g/dL (31.0-37.0); MCV 99.8 fL (80.0-100.0); MEAN PLATELET VOLUME 10.3 fL (7.4-10.4); MONOCYTES 5.7 % (2-11); PLATELET COUNT 253 10x3/uL (130-400); RBC 4.07 10x6/uL (4.20-6.10); RDW 13.6 % (11.5-14.5); WBC 16.7 10x3/uL (4.8-10.8)
[2019-12-29 06:18] LABS: CALC OSMOLALITY 315 mosm/kg (275-300); CALCIUM 9.2 mg/dL (8.5-10.1); CARBON DIOXIDE 31.7 mmol/L (21.0-32.0); CREATININE - SERUM 0.9 mg/dL (0.6-1.3); GLUCOSE 119 mg/dL (74-106); POTASSIUM - SERUM 4.2 mmol/L (3.5-5.1); SODIUM 155 mmol/L (136-145); UREA NITROGEN 35 mg/dL (7-18); eGFR NON AFRICAN AMERICAN 89 mL/min (90-120)
[2019-12-29 06:28] LABS: CHLORIDE - SERUM 118 mmol/L (98-107)
--- NOTE | 2019-12-29 06:29 | NUR ---
LAB CALLED WITH CRITICAL LAB VALUE OF 118. DR. JAIMES NOTIFIED. NO ORDERS GIVEN. PATIENT IS BEING DISCHARGED TODAY TO [facility]
--- NOTE | 2019-12-29 07:46 | NUR ---
PT SITTING IN CHAIR IN HALLWAY. EYES CLOSED. NO ACUTE DISTRESS NOTED. PT ALERT TO SELF ONLY. CONFUSED AND DISORIENTED.PT IS TO DISCHARGE TO INPATIENT HOSPICE 12/29/19. NO BEHAVIORS NOTED AT THIS TIME AND NONE REPORTED FROM PREVIOUS SHIFT. PT IS A TOTAL ASSIST. CHAIR ALARM IN PLACE AND ACTIVE. WILL CONT PLAN OF CARE. WILL CONT TO MONITOR.
--- NOTE | 2019-12-29 09:44 | NUR ---
SW CALLED PT'S SPOUSE, LISHA, TO ALERT OF PT DISCHARGING TO [facility] TODAY. PT WILL BE TRANSPORTED VIA AMBULANCE.
--- NOTE | 2019-12-29 09:46 | NUR ---
EMS here with two assist to the gurney. Paperwork provided along with the patient's belongings sent with the patient. The patient is now d/c'd from residential on his way to [facility] to their inpatient hospice.
[2019-12-29 09:55] VITALS: BP 147/88
--- NOTE | 2019-12-31 19:18 | PN ---
PATIENT:AMAN MICHAELS MEDICAL RECORD: [id number] LOCATION:[facility] ADMISSION DATE: 12/24/19 PROGRESS NOTE DATE OF SERVICE: 12/28/2019 SUBJECTIVE: The patient's case was discussed with staff. He has no new complaint. OBJECTIVE: The patient is in good behavioral control. He has poor insight about his situation. He is not eating or drinking adequately. He is not moving his bowels adequately. ASSESSMENT: Dementia. PLAN: This patient's dementia is end-stage. It would be appropriate to refer him to hospice and comfort care be provided. His sodium is dramatically elevated. I am not sure he is going to allow IV placement. There is nothing about his condition that would prevent him from being managed on a medical floor. By that I mean he is not dangerous to others in some direct way it is primarily with care that is given and now that he is not mobile. He certainly is not at risk. Also, adequate p.r.n. medications could easily be administered to make him manageable on a medical floor. All of this may be not of any real value since it looks as though he is going to require hospice care. TRANSINT:[id number] Voice Confirmation ID: [id number] DOCUMENT ID: [id number] KATALINA MOSCOSO MD at 1918 CC: [id number] DICTATION DATE: 12/28/19 1344 ADJUSTMENT SUPERVISOR: 12/28/19 1743 DIS IN 12/29/19 [facility] [address] [place] [address]
== END 2019-12-29 09:46 | disposition home health service (06) | DRG 57 ==
LOC: D.PSYCH 17:58
PROVIDERS: Family Medicine; ADMIT Psychiatry & Neurology Psychiatry; ATTEND Psychiatry & Neurology Psychiatry
DX: G30.1 Alzheimer's disease with late onset (principal); F02.81 Dementia in other diseases classified elsewhere, unspecified severity, with behavioral disturbance; F41.8 Other specified anxiety disorders; N40.1 Benign prostatic hyperplasia with lower urinary tract symptoms; E78.5 Hyperlipidemia, unspecified; J30.9 Allergic rhinitis, unspecified; K21.9 Gastro-esophageal reflux disease without esophagitis; K59.00 Constipation, unspecified; M19.90 Unspecified osteoarthritis, unspecified site; E55.9 Vitamin D deficiency, unspecified; I10 Essential (primary) hypertension; R63.0 Anorexia